=== PATIENT | female | born 1955 | race Caucasian/White ===

== ENCOUNTER 2018-02-22 12:23 | Emergency (ER) | payer OTHER ==
[~2018-02-22] VITALS: Ht 160 cm; Wt 101.9 kg
[~2018-02-22 12:23] MED LIST: HYDROCHLOROTHIA25 MG PO; K-DUR20 MEQ PO; LASIX20 MG PO; LISINOPRIL5 MG PO; OXYCODONE-ACET1 EACH PO; POT CL MICRO PO; PROTONIX40 MG PO; SPIRONOLACT PO; ULTRAM50 MG PO; ZOLOFT100 MG PO
[2018-02-22 12:51] LABS: APPEARANCE SL.HAZY ((CLEAR)); BILIRUBIN NEGATIVE; BLOOD NEGATIVE; COLOR YELLOW ((YELLOW)); GLUCOSE (STRIP) NEGATIVE; KETONES NEGATIVE; LEUKOCYTES NEGATIVE; NITRITE NEGATIVE; PROTEIN (STRIP) NEGATIVE; SPECIFIC GRAVITY 1.019 (1.000-1.030); UROBILINOGEN 0.2 MG/DL (0.2-1.0)
[2018-02-22 13:00] LABS: BACTERIA RARE /HPF; EPITHELIAL CELLS 1+ /HPF; MUCUS TRACE /LPF; RED BLOOD CELLS 0-5 /HPF (0-5); UCUL ADDED? NO; WHITE BLOOD CELLS 0-5 /HPF (0-5)
[2018-02-22 13:16] LABS: HEMATOCRIT 38.3 % (36.0-46.0); HEMOGLOBIN 13.1 G/DL (11.9-15.5); MCH 32.9 PG (29.0-34.0); MCHC 34.2 G/DL (30.0-36.0); MCV 96.2 FL (83-99); PLATELET COUNT 225 K/uL (156-360); RBC DIS.WIDTH-CV 13.1 % (11.8-14.6); RBC DIS.WIDTH-SD 46.5 % (39-53); RED BLOOD COUNT 3.98 M/uL (3.80-5.20); WHITE BLOOD COUNT 7.5 K/uL (4.1-10.2)
[2018-02-22 13:21] LABS: CHLORIDE 107 mEq/L (99-109); POTASSIUM 4.5 mEq/L (3.7-5.4); SODIUM 140 mEq/L (136-147)
[2018-02-22 13:23] LABS: GLUCOSE 139 mg/dL (70-99)
[2018-02-22 13:27] LABS: CREATININE 1.2 mg/dL (0.6-1.3); GFR ESTIMATE (CALCULATED) 48 mL/min/
[2018-02-22 13:28] LABS: UREA NITROGEN (BUN) 21 mg/dL (9-23)
[2018-02-22] MEDS ORDERED: MIRALAX17 GM PO (15:01)
[2018-02-22 16:00] VITALS: BP 145/96
== END 2018-02-22 16:12 | disposition home or self-care (01) ==
LOC: EME 12:23
DX: K59.00 Constipation, unspecified (principal); R10.32 Left lower quadrant pain; E78.5 Hyperlipidemia, unspecified; I10 Essential (primary) hypertension; F32.9 Major depressive disorder, single episode, unspecified; K21.9 Gastro-esophageal reflux disease without esophagitis
CPT/HCPCS: 74177; 80048; 81003; 85027; 99281; 99284; J2270; J2405; J7030